=== PATIENT | female | born 1955 | race Caucasian/White ===

== ENCOUNTER 2025-01-21 10:06 | Emergency (ER) | payer MEDICARE, OTHER, SELFPAY ==
[2025-01-21 10:13] VITALS: BP 170/93
--- NOTE | 2025-01-21 10:53 | ED.GENMED ---
History of Present Illness
General
Chief Complaint: Blood Pressure Problem
Source: patient
Exam Limitations: none
Time Seen by Provider: 01/21/25 10:37
History of Present Illness
History of Present Illness:
69yoF with a history of hypothyroidism presenting with her for evaluation of elevated blood pressure. Patient started to experience a headache 3 days ago. headache was initially located at the top of the head but is now located in the
occipital and bitemporal regions. Headache is currently rated as a 7/10 in severity. Patient started to check her blood pressure due to her headache and blood pressures have been persistently elevated at home. Systolic blood pressures have been
ranging in the 150-160 range. She took a walk 2 nights ago and blood pressure did seem improved after this. She tried to take another walk yesterday which did not help. She also reports shortness of breath and intermittent palpitations. She had
a mild pinching discomfort in her left chest last night which has resolved. She has no prior history of hypertension. Last physical was about 6 months ago. Her blood pressures in the office have always been normal and are sometimes low. Her only
current medication is Synthroid.
Phy Exam
General Physical Exam
General Presentation: well appearing and no apparent distress
General Skin: warm and dry
General Habitus: normal
General Mental: alert
Eye Exam
Eye Exam: PERRL and conjunctiva normal
Cardiovascular Exam
Cardiovascular Exam: regular rate/rhythm, no edema and normal peripheral pulses
Pulmonary Exam
Pulmonary Exam: lungs clear, no respiratory distress, no rales, no crackles, no rhonchi and no wheezing
Neurological Exam
Neurological Exam: alert, no motor deficits and speech normal
[place] Coma Scale
Eye Opening: Spontaneous
Verbal Response: Oriented
Motor Response: Obeys Commands
GCS Total Score: 15
Skin Exam
Skin Exam: normal color and warm/dry
Psychiatric Exam
Psychiatric Exam: normal mood/affect
Course
Orders/Labs/Results
Orders:
Orders
01/21/25 10:52
Electrocardiogram (*1) Urgent
Reason for Study: Chest Pain
CT Head W/o Iv Contrast Urgent
Comment:
Reason For Exam: headache, elevated BP
Cardiac Monitoring- Treatment ONCE
EKG- Treatment ONCE
01/21/25 11:15
CRP [C-Reactive Protein] Urgent
Complete Blood Count/With Diff Urgent
Comprehensive Metabolic Panel Urgent
ESR [Erythrocyte Sed Rate] Urgent
TSH Reflex To Free T4 Urgent
Troponin I Urgent
01/21/25 11:19
Acetaminophen [Tylenol] 1,000 mg PO NOW STA
Abnormal Lab Results
01/21/25
11:15
RDW 15.5 H %
(11.5-14.5)
Creatinine 0.5 L mg/dL
(0.6-1.0)
Glucose 102 H mg/dl
(70-99)
01/21/25 11:15
01/21/25 11:15
Vital Signs
Blood pressure: 132/76
Initial and Last Documented VS:
Initial Vital Signs
Temp Pulse Resp BP Pulse Ox
98 F 89 16 170/93 98
01/21/25 10:13 01/21/25 10:13 01/21/25 10:13 01/21/25 10:13 01/21/25 10:13
Last Documented Vital Signs
Temp Pulse Resp BP Pulse Ox
98 F 76 18 132/76 94
01/21/25 10:13 01/21/25 13:53 01/21/25 13:53 01/21/25 13:53 01/21/25 13:53
MDM/Problems Addressed
Differential Diagnosis Includes:
69yoF here with elevated BP for the past several times. Started taking her BP at home due to a headache. No prior history of HTN. Also c/o SOB. BP 170/93 on arrival. Patient well appearing in no distress and exam reassuring. Differential diagnosis
includes but is not limited to: asymptomatic hypertension, hypertensive urgency, hypertensive emergency
Initial ED plan: Check cardiac labs, TSH, ESR/CRP given temporal headache, and CT head.
*Pulse Oximetry
SaO2: 98
Oxygen Mode of Delivery: Room air
Patient hypoxic: no
*EKG
Interpreted by ED Provider?: Yes
EKG Intrepretation Date: 01/21/25
Heart Rate: 81
Rate: normal
Rhythm: sinus
[place]: normal axis
Interval: normal interval
QRS Pattern: normal QRS
Ischemia: no ischemia
*Critical Care Note
Total Time (30-74mins, 75-104mins- exclusive of procedures): Not Applicable
Update Note
Update Note:
Labs unremarkable including normal renal function. ESR and CRP are normal making temporal arteritis very unlikely. TSH normal. EKG shows normal sinus rhythm without ischemic changes and troponin undetectable. Head CT is negative for acute
findings. Possible meningioma noted incidentally which is small measuring 1.3 x 1 x 0.9 cm without any mass effect. Radiology recommending outpatient MRI for further evaluation. Blood pressure improved to 132/76 without intervention. No signs of
end organ dysfunction. No indication for hospitalization. Patient requesting a blood pressure medication to use as needed. Discussed that most blood pressure medications are daily preventative medications and not PRN. She was advised to
follow-up with her PCP for further management. Patient informed of incidental finding and copy of radiology report and disc provided. ED return precautions reviewed and she was discharged in stable condition.
ED Attending Note
-
Portions of this chart may have been created with voice recognition software.� Occasional wrong word or��sound alike� substitutions may have occurred due to the inherent limitations of voice recognition software.
Discharge Plan
Departure
Patient Disposition: Home (Routine Discharge)
Date of Disposition: 01/21/25
Time of Disposition: 13:18
Patient with high blood pressure during this ER visit?: Yes
Discharge Problem:
Blood pressure elevated without history of HTN, Abnormal CT of the head
Instructions: High Blood Pressure (DC)
Referrals:
Leia Garg MD [Family Provider, Cardiology]
Activity Restrictions/Additional Instructions:
Please call on Thursday to schedule a follow-up appointment with your family doctor. You should have your blood pressure rechecked in the office.
The CT scan of your head showed a possible meningioma. You will need an outpatient MRI for further evaluation of this.
Return to the ER with any worsening symptoms including chest pain, severe headache, or stroke-like symptoms.
Interventions
Interventions:
*Risk Screen - Suicide Last Done: 01/21/25 10:13
*General Assessment Last Done: 01/21/25 13:53
*Neglect/Abuse Screening Last Done: 01/21/25 10:13
*ED- Fall Risk Assessment Last Done: 01/21/25 13:53
*ED COVID-19 Vaccine History Last Done: 01/21/25 13:53
*ED Influenza Vaccine History Last Done: 01/21/25 13:53
*Nursing Disposition Last Done: 01/21/25 13:53
ED- Cardiac Assessment Last Done: 01/21/25 13:52
ED- Neurological Assessment Last Done: 01/21/25 13:52
ED- Pulmonary Assessment Last Done: 01/21/25 13:52
Discharge Date and Time
Discharge Date/Time: 01/21/25 13:54
Print Language: ALBANIAN
[2025-01-21 11:24] LABS: Hematocrit 38.6 % (37.0-47.0); Hemoglobin 13.3 g/dL (12.0-16.0); Mean Corp Hgb Conc. 34.5 g/dL (33.0-37.0); Mean Corpuscular Volume 86.7 fL (81.0-99.0); Nucleated Red Blood Cells % 0 %; Platelet Count 223 10^3/uL (130-400); Red Cell Dist. Width 15.5 % (11.5-14.5)
[2025-01-21 11:45] LABS: ALT (SGPT) 21 U/L (0-35); AST (SGOT) 22 U/L (14-36); Albumin 4.5 g/dl (3.5-5.0); Alkaline Phosphatase 71 U/L (38-126); Blood Urea Nitrogen 13 mg/dl (7-17); Calcium 9.5 mg/dl (8.4-10.2); Carbon Dioxide 25 mmol/L (22-30); Chloride 106 mmol/L (98-107); Glucose 102 mg/dl (70-99); Potassium 4.0 mmol/L (3.5-5.1); Sodium 139 mmol/L (135-145); Total Protein 7.3 g/dl (6.3-8.2); eGFR > 60.00
[2025-01-21 11:49] LABS: Troponin I < 0.012 ng/ml
[2025-01-21 11:50] LABS: C-Reactive Protein 7.10 mg/L (0.0-10.00)
[2025-01-21 13:53] VITALS: BP 132/76
== END 2025-01-21 13:54 | disposition home or self-care (01) ==
LOC: EMR 10:06
PROVIDERS: Physician Assistant; EMERGENCY PHYSICIAN Emergency Medicine; FAMILY PHYSICIAN Internal Medicine Cardiovascular Disease
DX: R03.0 Elevated blood-pressure reading, without diagnosis of hypertension (principal); E03.9 Hypothyroidism, unspecified; R93.0 Abnormal findings on diagnostic imaging of skull and head, not elsewhere classified
CPT/HCPCS: 99284; 70450; 80053; 84443; 84484; 85025; 85652; 86140; 93005